=== PATIENT | female | born 1950 | race Caucasian/White ===

== ENCOUNTER → 2017-02-05 | Outpatient (CLI) | payer OTHER | LOC: BMCIMAGING 12:28 | PROVIDERS: ATTEND Internal Medicine | DX: Z12.31 Encounter for screening mammogram for malignant neoplasm of breast (principal) | CPT/HCPCS: G0202 ==

== ENCOUNTER → 2017-02-22 | Outpatient (CLI) | payer OTHER | LOC: BMCIMAGING 10:42 | PROVIDERS: ATTEND Internal Medicine | DX: R92.8 Other abnormal and inconclusive findings on diagnostic imaging of breast (principal) | CPT/HCPCS: G0206 ==

== ENCOUNTER → 2017-03-08 | Outpatient (CLI) | payer OTHER ==
[~2017-03-08] MED LIST: BUPIVACAINE 0.5% 10 ML SDV ONE; LIDOCAINE 1% 300 MG/30 ML SDV ONE; THROMBIN (BOVINE) 5,000 UNIT VIAL TP ONE
[2017-03-16 15:02] LABS: FIXED IN 10%FORM 6-72HR Yes; FIXED IN 10%FORM W/IN 1 HR Yes
== END ==
LOC: FIMAGING 07:09
PROVIDERS: ATTEND Internal Medicine
PROC: 0HBT3ZX Excision of Right Breast, Percutaneous Approach, Diagnostic (ICD-10-PCS; principal; 2017-03-08)
DX: C50.411 Malignant neoplasm of upper-outer quadrant of right female breast (principal)
CPT/HCPCS: G0206

== ENCOUNTER 2017-03-22 06:31 | Day surgery (SDC) | payer OTHER ==
[2017-03-22] MEDS ORDERED: LR 1,000 ML IV ONE (06:49)
[2017-03-22] MEDS ORDERED: LIDOCAINE 1% 2 ML INJ ID PRN (06:49)
[2017-03-22] MEDS ORDERED: LIDOCAINE 1% 300 MG/30 ML SDV ONE ×2 (07:56→09:42)
[2017-03-22 08:18] VITALS: PULSE 63
[2017-03-22] MEDS ORDERED: BUPIVACAINE 0.25% 30 ML SDV ONE (09:43)
--- NOTE | 2017-03-22 10:07 | PDANEPAE ---
ANE History of Present Illness r breast mass ANE Past Medical History - Cardiovascular History Hx Hypertension: No Hx Arrhythmias: No Hx Chest Pain: No Hx Coronary Artery / Peripheral Vascular Disease: No Hx CHF / Valvular Disease: No Hx Palpitations: No - Pulmonary History Hx COPD: No Hx Asthma/Reactive Airway Disease: No Hx Recent Upper Respiratory Infection: No Hx Oxygen in Use at Home: No Hx Sleep Apnea: No Sleep Apnea Screening Result - Last Documented: Negative - Neurologic History Hx Cerebrovascular Accident: No Hx Seizures: No Hx Dementia: No - Endocrine History Hx Diabetes: No Endocrine History Comment: rising TSH - Renal History Hx Renal Disorders: No - Liver History Hx Hepatic Disorders: No - Neurological & Psychiatric Hx Hx Neurological and Psychiatric Disorders: No Neurological / Psychiatric History Comment: hx of herniated disc-R neck - Cancer History Hx Cancer: Yes Cancer History Comment: R breast - Congenital Disorder History Hx Congenital Disorders: No - GI History Hx Gastrointestinal Disorders: Yes Gastrointestinal History Comment: Crohn's disease -in remission. Tendency toward constipation - Other Health History Other Health History: R breast- very large bruise 03-15-17. - Chronic Pain History Chronic Pain: No - Surgical History Prior Surgeries: tumor resection-parotid gland. appy. 8 in. resected sm intestine (Crohn's). IUD removal in OR-age 20 ANE Review of Systems Review of Systems: - Exercise capacity METS (RN): 5 METS ANE Patient History - Allergies Allergies/Adverse Reactions: acetaminophen [From Tylenol] Allergy (Verified 03/15/17 11:17) diphenhydramine [From Benadryl] Allergy (Verified 03/15/17 11:17) Other-Enter Comments gluten Allergy (Verified 03/15/17 11:17) Tetracyclines Allergy (Verified 03/15/17 11:18) Other-Enter Comments - Home Medications Home Medications: NK [No Known Home Meds] 03/15/17 [Last Taken Unknown] - NPO status NPO Since - Liquids (Date): 03/22/17 NPO Since - Liquids (Time): 06:00 NPO Since - Solids (Date): 03/21/17 NPO Since - Solids (Time): 18:00 - Smoking Hx Smoking Status: Never smoked ANE Labs/Vital Signs - Vital Signs Blood Pressure: 110/67 Heart Rate: 63 Respiratory Rate: 20 O2 Sat (%): 96 Height: 168.91 cm Weight: 56.699 kg ANE Physical Exam - Airway Neck exam: FROM Mallampati Score: Class 1 Mouth exam: normal dental/mouth exam - Pulmonary Pulmonary: no respiratory distress - Cardiovascular Cardiovascular: regular rate and rhythym - ASA Status ASA Status: II ANE Anesthesia Plan Anesthesia Plan: GA w LMA
[2017-03-22] MEDS ORDERED: fentaNYL 100 MCG/2 ML INJ ONE ×3 (10:17→12:58)
[2017-03-22] MEDS ORDERED: PROPOFOL 200 MG/20 ML VIAL ONE (10:17)
--- NOTE | 2017-03-22 10:30 | PDHPUP ---
History & Physical Update H&P update statement: This history and physical update is based on an assessment of the patient which was completed after admission or registration (within 24 hours), but prior to the surgery/procedure. H&P update: no change in patient's condition since H&P completed
[2017-03-22] MEDS ORDERED: ceFAZolin 2 GM/SWFI 2 GM/20 ML SYR IVP ONE (10:58)
[2017-03-22] MEDS ORDERED: NALOXONE HCL 0.4 MG/ML INJ IVP PRN (11:29)
[2017-03-22] MEDS ORDERED: HYDROmorphONE/DILAUDID 1 MG/ML INJ IVP PRN (11:29)
[2017-03-22] MEDS ORDERED: fentaNYL 100 MCG/2 ML INJ IVP PRN (11:29)
[2017-03-22] MEDS ORDERED: AVITENE POWDER 1 GM JAR TP ONE (11:57)
--- NOTE | 2017-03-22 12:48 | POSTANESTH ---
Post Anesthetic Evaluation Cardiovascular Status: Normal, Stable Respiratory Status: Normal, Stable Level of Consciousness/Mental Status: Can Participate in Eval Pain Control: Adequate, Prn Tx Ordered Nausea/Vomiting Control: Adequate, Prn Tx Ordered Complications Possibly Related to Anesthesia: None Noted
[2017-03-22] MEDS ORDERED: HYDROmorphONE/DILAUDID 1 MG/ML INJ ONE (12:59)
--- NOTE | 2017-03-22 13:00 | POSTOPPROG ---
Post Op Note Date of Operation: 03/22/17 Surgeon: Bi Hart (, FACS) Typists Supervisor: Mikki Deras RN-FA, CNOR Anesthesiologist: Sandro Alvarez MD Anesthesia: LMA Pre-op Diagnosis: right breast cancer Post-op Diagnosis: same Procedure: right partial mastectomy/SLN bx/oncoplastic reconstruction Inf/Abcess present in the surg proc area at time of surgery?: No EBL: Minimal Complications: none
--- NOTE | 2017-03-22 13:00 | POSTOPPROG ---
Post Op Note Date of Operation: 03/22/17 Surgeon: Bi Hart (, FACS) Poultry And Fish Butcher: Mikki Deras RN-FA, CNOR Anesthesiologist: Sandro Alvarez MD Anesthesia: LMA Pre-op Diagnosis: right breast cancer Post-op Diagnosis: same Procedure: right partial mastectomy/SLN bx/oncoplastic reconstruction Inf/Abcess present in the surg proc area at time of surgery?: No EBL: Minimal Complications: none
[2017-03-22] MEDS ORDERED: oxyCODONE IR 5 MG TAB PO PRN (13:01)
[2017-03-22] MEDS ORDERED: ONDANSETRON DISINTEGRATING 4 MG TAB PO PRN (13:01)
[2017-03-22] MEDS ORDERED: ONDANSETRON 4 MG/2 ML VIAL ONE ×2 (13:07→13:45)
[2017-03-22] MEDS: ONDANSETRON 4 MG/2 ML VIAL IVP PRN ×3 (13:13→13:45)
[2017-03-22 13:31] VITALS: TEMP 98.1
[2017-03-22] MEDS ORDERED: PROMETHAZINE HCL 25 MG/ML INJ ONE (13:57)
[2017-03-22] MEDS: PROMETHAZINE HCL 25 MG/ML INJ IVP PRN ×2 (14:00→14:14)
[2017-03-22 15:12] VITALS: RESP 17
[2017-03-22 16:04] VITALS: BP 121/60; O2SAT 94
--- NOTE | 2017-03-22 18:31 | GOP ---
[f rep st] OPERATIVE REPORT DATE OF OPERATION: 03/22/2017 SURGEON: Bi Hart MD, FACS MANAGER INTELLIGENCE: LOKESH Curry ANESTHESIA: General by laryngeal mask. ANESTHESIOLOGIST: Rohini Alvarez MD PREOPERATIVE DIAGNOSIS: Right breast cancer. POSTOPERATIVE DIAGNOSIS: Right breast cancer. PROCEDURE PERFORMED: 1. Right partial mastectomy with sentinel lymph node mapping and biopsy. 2. Oncoplastic reconstruction with adjacent tissue transfer. FINDINGS: 2 sentinel nodes submitted for frozen section with no evidence of malignancy. Primary tumor site with preoperative ultrasound-guided needle localization excised and inked for orientation and submitted for specimen mammogram, which showed the clip deployed within the specimen. Additional posterior and inferior margins individually submitted for permanent section. ESTIMATED BLOOD LOSS: 10 mL. DESCRIPTION OF PROCEDURE: After informed consent was obtained, the patient was brought to the operating room and placed under general anesthesia. The right arm was extended. The neck was kept in neutral position. The right breast and chest wall were prepped and draped in the usual sterile fashion. Patient had a wire exiting the breast in the extreme upper outer quadrant at approximately 10: 30 position with the needle directed posteriorly and cephalad. Intraoperatively , mammograms and ultrasound images were reviewed. The patient had undergone sentinel lymph node injection but failed to visualize during the lymphoscintigraphy portion of the procedure. Before proceeding, a time-out and identification of the patient was performed. Gamma detection with the Neoprobe was performed before starting the surgery and areas of increased activity were noted in the lower axilla. The planned partial mastectomy incision was near the tail of the breast and was marked in a curvilinear fashion extending somewhat anterior to the needle entry site. The skin was infiltrated with 0.25% Marcaine, incised in a circumareolar fashion. Skin was dissected down to the deep subcutaneous plane. The wire was intercepted into the incision and the tissue around the shaft and tip of the wire was widely excised extending down to the pectoralis muscle where a hematoma was discovered along the lateral border. This was excised along with the remainder of the posterior margin. Specimen was removed from the field and inked with a margin-marker kit, separately designating the superior, inferior, medial, lateral, anterior, and posterior margins. This was submitted for specimen mammogram. It was later reported to contain the wire and the clip previously deployed after the biopsy. The posterior wall of the dissection reflected the pectoralis fascia, some of the muscle, and the adjacent fibrofatty tissue of the superficial axilla. This was excised to a depth of approximately 5-8 mm and inked for final orientation representing the final posterior margin. An additional inferior margin was excised because of the texture of the breast tissue at this level and was separately submitted for final inferior margin. This allowed access to the axilla. The deep axillary fascia was incised. The Neoprobe was used to identify 2 sentinel nodes, one of which was close to the surgical bed. The second was slightly higher but both in the level 1 chain. These were individually excised and submitted for frozen as well as permanent section. No evidence of malignancy was identified on frozen section. Hemostasis was secured with sparing use of cautery and small hemoclips. Larger titanium hemoclips were used to macarena the perimeter of the lumpectomy cavity. Before closing, oncoplastic reconstruction was performed mobilizing the breast tissue inferior and medial as well as cephalad to the lumpectomy cavity by undermining the deep subcutaneous tissue overlying the breast. This allowed the adjacent breast tissue to cantilever into the defect; thereby, creating a more pleasing cosmetic outcome. Avitene was placed into the cavity. After hemostasis appeared secure, the subcutaneous tissues were approximated with 3-0 Monocryl suture. The skin was closed with 4-0 Monocryl suture in a subcuticular fashion. Topical Dermabond was applied. The patient was returned extubated to the recovery room in satisfactory condition. Needle, sponge, and instrument count were correct. COMPLICATIONS: None. /[id number]/MODL [id number]
== END 2017-03-22 16:30 | disposition home or self-care (01) ==
LOC: FSGY 06:31
PROVIDERS: ATTEND Surgery
PROC: 07B80ZX Excision of Right Internal Mammary Lymphatic, Open Approach, Diagnostic (ICD-10-PCS; principal; 2017-03-22 10:00)
PROC: 0HBT0ZZ Excision of Right Breast, Open Approach (ICD-10-PCS; principal; 2017-03-22 10:00)
DX: C50.911 Malignant neoplasm of unspecified site of right female breast (principal)
CPT/HCPCS: 19302; 76098; 77065; 78195; A9520; G0206; J1170; J2405; J2550; J2704; J3010